=== PATIENT | female | born 1980 | race Caucasian/White ===

== ENCOUNTER 2018-04-05 05:00 | Day surgery (SDC) | payer OTHER ==
[2018-04-01 12:52] VITALS: BMI 36.4
[~2018-04-05 05:00] MED LIST: BUPIVACAINE HCL/PF (5 MG/ML) 30 ML VIAL IJ ONE
[2018-04-05] MEDS ORDERED: CEFAZOLIN 2 GM in DEXTROSE 5%-WATER 100 ML IVPB ONE (06:56)
[2018-04-05] MEDS ORDERED: PHENAZOPYRIDINE HCL 100 MG TABLET (FP) PO ONE (06:56)
[2018-04-05] MEDS ORDERED: ceFAZolin SODIUM 1 GM VIAL ONE (07:26)
[2018-04-05] MEDS ORDERED: PHENAZOPYRIDINE HCL 100 MG TABLET (FP) ONE (07:27)
[2018-04-05] MEDS ORDERED: PROPOFOL 20 ML ONE ×4 (07:41)
[2018-04-05] MEDS ORDERED: ROCURONIUM BROMIDE 50 MG/5 ML VIAL ONE (07:41)
[2018-04-05] MEDS ORDERED: ePHEDrine SULFATE 50 MG/1 ML AMPULE ONE (07:41)
[2018-04-05] MEDS ORDERED: fentaNYL CITRATE 250 MCG/5 ML VIAL ONE (07:41)
[2018-04-05] MEDS ORDERED: SUCCINYLCHOLINE CHLORIDE 200 MG/10 ML VIAL ONE (07:42)
[2018-04-05] MEDS ORDERED: MIDAZOLAM HCL 2 MG/2 ML SINGLE DOSE VIAL ONE ×3 (07:42→07:56)
[2018-04-05] MEDS ORDERED: BUPIVACAINE HCL/PF 0.5% (5MG/ML) 10 ML VIAL ONE (07:49)
[2018-04-05] MEDS ORDERED: DOCUSATE SODIUM 100 MG CAPSULE (FP) PO PRN (08:06)
[2018-04-05] MEDS ORDERED: IBUPROFEN 800 MG/8 ML IJ IVPB PRN (08:06)
[2018-04-05] MEDS ORDERED: ONDANSETRON 4 MG/2 ML VIAL IVPUSH PRN (08:06)
[2018-04-05] MEDS ORDERED: ACETAMINOPHEN 325 MG TABLET (FP) PO PRN (08:06)
[2018-04-05] MEDS ORDERED: BISACODYL 5 MG TABLET.DR (FP) PO PRN (08:06)
--- NOTE | 2018-04-05 08:06 | HP ---
History & Physical Update - History History: No Change - Physical Physical: No Change - Assessment Assessment: No Change - Plan Plan: No Change (No change in HP on chart)
[2018-04-05] MEDS ORDERED: ceFAZolin SODIUM 1 GM VIAL IVPB ONE (08:37)
[2018-04-05] MEDS ORDERED: DESFLURANE GAS 240 ML BOTTLE IH ONE (08:43)
[2018-04-05] MEDS ORDERED: BUPIVACAINE HCL/PF (5 MG/ML) 30 ML VIAL IJ ONE (10:18)
--- NOTE | 2018-04-05 11:00 | OP ---
<Tapan Verma - Last Filed: 04/05/18 10:57> Operative Note - Note: Operative Date: 04/05/18 Pre-Operative Diagnosis: Metrorrhagia, adenomyosis and leiomyomatous uterus Operation: Robotic hysterectomy w/ bilateral salpingectomy Post-Operative Diagnosis: Same as Pre-op Surgeon: Ryann Ortiz Production Line: Tapan Verma Anesthesiologist/SUPERVISOR REACTOR FUELING: Mitch Yousif Anesthesia: General Specimens Removed: As above. Estimated Blood Loss (mls): 50 Drains, Volume Out (mls): 300 Fluid Volume Replaced (mls): 1,000 Operative Report Dictated: Yes <Ryann Ortiz - Last Filed: 04/05/18 15:22> Operative Note - Note: Operation: Robotic laparoscopic total hysterectomy. bilateral salpingectomy
--- NOTE | 2018-04-05 11:01 | SURG ---
Surgery Surgical Forceps Fabricator Note Surgical Forceps Fabricator: Tapan Verma PA-C Date of Service: 04/05/18 Diagnosis: Metrorrhagia, adenomyosis and leiomyomatous uterus Procedure: Robotic hysterectomy with bilateral salpingectomy I was present for the entirety of the operative procedure. For further detail, please refer to operative report. Visit type - Case Type Case Type: Scheduled - New patient This patient is new to me today: Yes Date on this admission: 04/05/18
[2018-04-05] MEDS ORDERED: oxyCODONE HCL 10 MG SUSTAINED ACTING TABLET ONE (11:26)
[2018-04-05] MEDS: oxyCODONE HCL 10 MG SUSTAINED ACTING TABLET PO SCH ×2 (11:30→21:50)
--- NOTE | 2018-04-05 12:05 | OP ---
DATE OF OPERATION: 04/05/2018 PREOPERATIVE DIAGNOSIS: Leiomyomatous uterus, menorrhagia. POSTOPERATIVE DIAGNOSIS: Leiomyomatous uterus, menorrhagia. OPERATION: Robotic laparoscopic total hysterectomy and bilateral salpingectomy also enterolysis. SURGEON: Arturo Lynn MD EXPANDED FUNCTION DENTAL ASSISTANT: CARLOS Mcclure ANESTHESIA: General. ANESTHESIOLOGIST: Louie and Dr. Guerrero. FINDINGS: Uterus approximately 8-9 cm in size. Tubes and ovaries normal. DESCRIPTION OF PROCEDURE: The patient was taken to the operating room and placed in dorsal lithotomy position, prepped and draped in the usual sterile fashion. A time-out was performed in accordance with hospital regulation. Payton catheter was inserted into the bladder. Uterine manipulator was then inserted after cervical dilation using a tenaculum. The manipulator was placed around the cervix. Attention was then drawn to the umbilicus where an 8-mm umbilical incision was made. Veress needle was inserted into the cavity. Approximately 3-4 L of CO2 was insufflated in the cavity. Veress needle was then removed, and an 8-mm trocar was then inserted. Laparoscope and camera attached. Visualization revealed numerous adhesions attached to the anterior abdominal wall, the bladder also attached to the uterus and the cervix. The patient had a tubal ligation. Tubes and ovaries were noted to be normal. Two trocars were placed on the left side, 1 in the upper abdomen. Using AirSeal cannula, a 5 mm was inserted after scalpel was used to make a 5-mm incision. The scalpel was then used to make a parallel incision to the umbilicus. An 8-mm trocar was inserted. Two trocars were inserted on the left side, 8-mm incisions and 10 mm apart from each other. Under direct visualization, trocars were inserted. The Da Mauro robot was then side docked to the patient's arm, and trocars were inserted on the Da Mauro robot. Instruments were then placed. A tenaculum was placed in arm 4 and Endo Pranay in arm 3. Also in arm 1 vessel sealer was placed all under direct visualization. Omental adhesions were noted to anterior abdominal wall. After all instruments had been placed and secured, attention was then drawn to the console. Control of the console was then done. Vessel sealer was then used to coagulate and cut the omental adhesions. Uterus was noted to be attached to the anterior abdominal wall, and cautery was then used with the Endo Pranay to lyse the adhesions from the abdominal wall to the uterus down to the level of the cervix. Vesicular uterine reflection was then entered, and the bladder was then bluntly dissected out of the operative field. The utero-ovarian ligaments were identified on the left and coagulated using vessel sealer. The uterine arteries were identified, clamped, and cut. Vesicouterine reflection was entered, and the bladder was bluntly dissected out of the operative field. Cardinal ligaments were identified, clamped, and cut. Broad ligaments were identified, clamped, and cut down to the level of the vagina. The Endo Pranay were then used to enter the vagina after the bladder had been dissected off the cervix. The same procedure was repeated on the other side. The utero-ovarian ligament was identified, clamped, and cut. Cardinal ligaments were identified, clamped, and cut. Uterine arteries were identified, clamped, and cut down to the level of the cervix. Cautery was then used to cut the vagina away from the cervix circumferentially. Hemostasis was achieved using cautery. The cervix was removed from the vagina and then cervical, uterus were removed to submit to pathology. Coagulation and cutting of the tubes bilaterally were done and removed from the vagina and submitted to Pathology. A 2-0 V-Lock suture was introduced, and continuous stitch was done with the robot of the vagina making sure not to enter the bladder. Ureters were identified and found to have peristalsis bilaterally. Payton was noted to have orange urine. Hemostasis was achieved. Needle was removed through the 8-mm port. No bleeding was noted. All pedicles were checked. All instruments were then removed. The Da Mauro robot was undocked, and Da Mauro robot was removed. Trocars were removed, and incisions were then closed using 3-0 Vicryl in subcuticular fashion. The wound was washed and dressed. Estimated blood loss was 40 mL. ARTURO LYNN M.D. [id number]
[2018-04-05] MEDS ORDERED: oxyCODONE HCL 5 MG TABLET PO PRN ×2 (12:13→12:14)
[2018-04-05] MEDS: LACTATED RINGERS SOLUTION 1,000 ML IV SCH (12:30)
[2018-04-05] MEDS: CEFAZOLIN 1 GM/D5W 1 GM/50 ML BAG IVPB SCH (17:45)
[2018-04-05 18:32] LABS: HEMATOCRIT 35.5 % (32.4-45.2); MCH 29.7 pg (25.7-33.7); MCHC 33.7 g/dl (32.0-36.0); MEAN CELL VOLUME 87.9 fl (80-96); MEAN PLT VOLUME 7.9 fl (7.5-11.1); PLATELET COUNT 333 K/MM3 (134-434); RBC 4.04 M/mm3 (3.60-5.2); RDW 13.1 % (11.6-15.6); WHITE BLOOD COUNT 13.1 K/mm3 (4.0-10.0)
[2018-04-05 19:10] LABS: ANION GAP 12 MMOL/L (8-16); BLOOD UREA NITROGEN 7 mg/dL (7-18); CALCIUM 8.7 mg/dL (8.5-10.1); CHLORIDE 108 mmol/L (98-107); CO2 21 mmol/L (21-32); CREATININE 0.9 mg/dL (0.55-1.3); GLUCOSE,RANDOM 187 mg/dL (74-106); POTASSIUM 4.4 mmol/L (3.5-5.1); SODIUM 141 mmol/L (136-145)
[2018-04-05] MEDS: SIMETHICONE 80 MG TAB.CHEW (FP) PO PRN (21:52)
[2018-04-06] MEDS: CEFAZOLIN 1 GM/D5W 1 GM/50 ML BAG IVPB SCH ×2 (02:00→09:19)
--- NOTE | 2018-04-06 05:33 | PN ---
Post Progress Note - Subjective Subjective: 37 yo status post delivery of a live seen and evaluated. Doing well Post Day: 1 Vital Signs: Vital Signs Temperature 99.1 F 04/05/18 22:00 Pulse Rate 76 04/05/18 22:00 Respiratory Rate 18 04/05/18 22:00 Blood Pressure 114/88 04/05/18 22:00 O2 Sat by Pulse Oximetry (%) 97 04/05/18 21:00 Breast Exam: Yes: Soft Uterus: Yes: Fundus Firm Incision: Yes: Dressing dry and intact Abdomen/GI: Yes: Abdomen soft Lochia: Yes: Rubra Lochia, amount: Small Extremities: Yes: Calves non-tender Activity: Other (She's lying in bed) - Labs Labs: CBC WBC 13.1 K/mm3 (4.0-10.0) H 04/05/18 17:30 RBC 4.04 M/mm3 (3.60-5.2) 04/05/18 17:30 Hgb 12.0 GM/dL (10.7-15.3) 04/05/18 17:30 Hct 35.5 % (32.4-45.2) 04/05/18 17:30 MCV 87.9 fl (80-96) 04/05/18 17:30 MCH 29.7 pg (25.7-33.7) 04/05/18 17:30 MCHC 33.7 g/dl (32.0-36.0) 04/05/18 17:30 RDW 13.1 % (11.6-15.6) 04/05/18 17:30 Plt Count 333 K/MM3 (134-434) 04/05/18 17:30 MPV 7.9 fl (7.5-11.1) 04/05/18 17:30 Assessment/Plan Statu spost Ambulation Analgesia as needed Continue routine post op care
[2018-04-06 06:20] VITALS: BP 116/68; PULSE 71; TEMP 98.7
--- NOTE | 2018-04-06 07:46 | PN ---
Progress Note (short form) - Note Progress Note: surgery POD #1 Robotic hysterectomy with bilateral salpingectomy patient seen and examined at bedside with no complaints. Patient has been tolerating her clear diet and ambulating without assistance. She states her pain is controlled, she is passing gas and she denies any CP, SOB, N/V, fever or chills. Vital Signs Temp 98.7 F 04/06/18 06:00 Pulse 71 04/06/18 06:00 Resp 18 04/06/18 06:00 BP 116/68 04/06/18 06:00 Pulse Ox 97 04/05/18 21:00 Intake & Output 04/05/18 04/05/18 04/06/18 11:59 23:59 11:59 Intake Total 1999 1750 1175 Output Total 290 2860 1400 Balance 1710 -1110 -225 Intake: IV 1999 1125 Lactated Ringers Solution 1125 1,000 ml @ 125 mls/hr IV ASDIR DIMITRI Rx#: [id number] IVPB 50 50 Oral 1700 Output: Urine 250 2860 1400 Payton 2700 1400 Estimated Blood Loss 40 Other: Voiding Method Indwelling Catheter CBC, BMP Pending PE: A&Ox3, NAD Unlabored resp on RA ABD: obese, soft, with mild ttp over lower quadrants appropriate to status, ND, incisions c/d/i with surrounding tissue intact and no tacking erythema or d/c LE compartment soft, supple and non-tender with +PD pulses b/l Problem List - Problems (1) History of robot-assisted laparoscopic hysterectomy Assessment/Plan: POD #1 robotic assisted hysterectomy b/l Salpingectomy doing well. 1) Payton has been removed will record voiding 2) advance diet 3) OOB as tolerated 4) Encourage IS 5) d/c planning for home later today. Code(s): Z90.710 - ACQUIRED ABSENCE OF BOTH CERVIX AND UTERUS
[2018-04-06 07:55] LABS: HEMATOCRIT 30.3 % (32.4-45.2); HEMOGLOBIN 10.7 GM/dL (10.7-15.3); MCH 30.6 pg (25.7-33.7); MCHC 35.2 g/dl (32.0-36.0); MEAN CELL VOLUME 86.9 fl (80-96); PLATELET COUNT 301 K/MM3 (134-434); RBC 3.48 M/mm3 (3.60-5.2); WHITE BLOOD COUNT 12.4 K/mm3 (4.0-10.0)
[2018-04-06] MEDS ORDERED: oxyCODONE HCL 5 MG TABLET PO PRN ×2 (08:06)
[2018-04-06 08:27] LABS: ANION GAP 6 MMOL/L (8-16); BLOOD UREA NITROGEN 6 mg/dL (7-18); CALCIUM 8.2 mg/dL (8.5-10.1); CHLORIDE 109 mmol/L (98-107); CO2 26 mmol/L (21-32); CREATININE 0.5 mg/dL (0.55-1.3); GLUCOSE,RANDOM 79 mg/dL (74-106); POTASSIUM 3.9 mmol/L (3.5-5.1); SODIUM 141 mmol/L (136-145)
[2018-04-06] MEDS: SIMETHICONE 80 MG TAB.CHEW (FP) PO PRN (09:20)
[2018-04-06] MEDS: oxyCODONE HCL 10 MG SUSTAINED ACTING TABLET PO SCH (09:31)
[2018-04-06] MEDS ORDERED: ENOXAPARIN NA (PORCINE) 40 MG/0.4 ML DISP.SYRIN SQ SCH (10:00)
[2018-04-06] MEDS ORDERED: ARIPiprazole 10 MG TABLET PO SCH (10:00)
[2018-04-06] MEDS ORDERED: MULTIVITAMINS (DAILY MVI) TABLET (FP) PO SCH (10:00)
[2018-04-06] MEDS: LACTATED RINGERS SOLUTION 1,000 ML IV SCH (11:31)
--- NOTE | 2018-04-09 10:05 | PATH ---
Surgical Pathology Report Patient Name: THOR BECERRIL [facility]. Rec. #: [id number] /Age/Gender: 1980 (Age: 37) / F Account: [id number] Location: AMBULATORY SURG Taken: 04/05/2018 Received: 04/05/2018 Reported: 04/09/2018 Physicians: Ryann Ortiz M.D. Specimen(s) Received A: UTERUS WITH PART OF CERVIX B: LEFT FALLOPIAN TUBE C: RIGHT FALLOPIAN TUBE Clinical History Fibroid Final Diagnosis A. UTERUS WITH PART OF CERVIX, HYSTERECTOMY: UTERUS WITH LEIOMYOMAS (2). PROLIFERATIVE ENDOMETRIUM. CERVIX WITH FOCAL MILD ACUTE AND CHRONIC INFLAMMATION. B. LEFT FALLOPIAN TUBE, SALPINGECTOMY: FALLOPIAN TUBE WITH PARATUBAL CYST. C. RIGHT FALLOPIAN TUBE, SALPINGECTOMY: FALLOPIAN TUBE WITH PARATUBAL CYST. Electronically Signed Mayra Worrell M.D. Gross Description A. Received in formalin labeled "uterus and part of cervix," is a 201 g uterus with an attached cervix and no attached adnexa. The specimen measures 12 cm from superior to inferior, 7 cm from left to right and 5.8 cm from anterior to posterior. The serosa is mccarty-álvarez and smooth. The attached cervix measures 4 cm in length and averages 2.7 cm in diameter. The ectocervix is mccarty, smooth and glistening. The endocervix is unremarkable. The endometrial cavity measures 5.5 cm in length and 3.4 cm from cornu to cornu. The endometrium is mccarty-red and averages 0.1 cm in thickness. The myometrium is mccarty-pink and measures up to 3.3 cm in thickness. There is a single 0.8 cm in greatest dimension intramural nodule present. The cut surface of the nodule is mccarty and rubbery with whorled architecture. No areas of hemorrhage or necrosis are identified. Automatic Pattern Edger sections are submitted in 6 cassettes as follows: 1-anterior cervix; 2-posterior cervix; 3-anterior endomyometrium with intramural nodule; 4-additional anterior endomyometrium; 1-8-[id number] endomyometrium. B. Received in formalin labeled "left fallopian tube," are 2 portions of fallopian tube measuring 1.8 and 2.0 cm in length. The shorter portion displays attached fimbria. The outer surfaces are mccarty-álvarez and smooth. Sectioning reveals unremarkable lumen. Automatic Pattern Edger sections are submitted in 2 cassettes as follows: 1-fimbria; 2-cross sections of fallopian tube. C. Received in formalin labeled "right fallopian tube," is a 2 cm in length fimbriated portion of fallopian tube. The outer surface is mccarty velez and smooth. Sectioning reveals an unremarkable lumen. Automatic Pattern Edger sections are submitted in 2 cassettes as follows: 1-fimbria; 2-cross sections of fallopian tube. __ /04/06/[facility]
== END 2018-04-06 12:10 | disposition home or self-care (01) ==
LOC: JASUSAT 05:00 → J3W 12:46 → JASUSAT 04-06 12:10
PROVIDERS: ATTEND Obstetrics & Gynecology
PROC: 0UT9FZZ Resection of Uterus, Via Natural or Artificial Opening With Percutaneous Endoscopic Assistance (ICD-10-PCS; principal; 2018-04-05 08:00)
PROC: 0UT7FZZ Resection of Bilateral Fallopian Tubes, Via Natural or Artificial Opening With Percutaneous Endoscopic Assistance (ICD-10-PCS; 2018-04-05 08:00)
DX: D25.9 Leiomyoma of uterus, unspecified (principal); N83.8 Other noninflammatory disorders of ovary, fallopian tube and broad ligament; N92.0 Excessive and frequent menstruation with regular cycle; N85.6 Intrauterine synechiae
CPT/HCPCS: 36415; 80048; 84703; 85027; 86850; 86900; 86901; 88305-TC; 88307-TC; 94010; 94760